=== PATIENT | female | born 1995 | race Caucasian/White ===

== ENCOUNTER 2016-10-24 17:12 | Observation (INO) | payer MEDICAID ==
[2016-10-24] MEDS ORDERED: MORPHINE SULFATE 10 MG/ML INJ IV ONE ×2 (18:39→23:28)
[2016-10-24] MEDS ORDERED: NORMAL SALINE 1000 ML 1,000 ML IV PRN (18:39)
--- NOTE | 2016-10-24 18:42 | ER Document Report ---
ED Medical Screen (RME) - General Chief Complaint: Lower Abdominal Pain Stated Complaint: LOWER ABDOMINAL PAIN Time Seen by Provider: 10/24/16 18:38 Notes: Patient complains of 3-4 days of severe right lower quadrant abdominal pain. She says the pain lasts 10-15 minutes at a time. No problems with bowel movements. No trouble with vomiting. No problems with urination. She has been able to eat normally. She states that she has been using Tylenol for the pain but this does not help. She states currently the pain is unbearable. This is her first . She denies any vaginal bleeding or discharge. She states she had an ultrasound at 5 weeks and this showed a normal developing fetus with good heart rate. Patient asked for pain medication and states she needs something stronger than Tylenol. I explained the risks of giving the patient something stronger such as morphine. Patient states she understood but would like to proceed with the morphine. TRAVEL OUTSIDE OF THE [place] IN LAST 30 DAYS: No - Related Data Allergies/Adverse Reactions: aspirin Allergy (Verified 10/24/16 18:24) rash nitrofurantoin [From Macrobid] Allergy (Verified 10/24/16 18:24) rash Past Medical History - Social History Chew tobacco use (# tins/day): No Frequency of alcohol use: None Drug Abuse: None Pulmonary Medical History: Reports: Hx Asthma Renal/ Medical History: Denies: Hx Peritoneal Dialysis Past Surgical History: Reports: Hx Oral Surgery Physical Exam - Vital signs Vitals: Temp Pulse Resp BP Pulse Ox 98.4 F 79 13 118/69 96 10/24/16 17:26 10/24/16 17:26 10/24/16 17:26 10/24/16 17:26 10/24/16 17:26 Course - Vital Signs Vital signs: Temp Pulse Resp BP Pulse Ox 98.4 F 79 13 118/69 96 10/24/16 17:26 10/24/16 17:26 10/24/16 17:26 10/24/16 17:26 10/24/16 17:26
[2016-10-24 19:16] LABS: ABSOLUTE EOSINOPHILS # (AUTO) 0.1 10^3/uL (0.0-0.6); ABSOLUTE LYMPHOCYTES (AUTO) 2.3 10^3/uL (0.5-4.7); ABSOLUTE MONOCYTES (AUTO) 0.8 10^3/uL (0.1-1.4); ABSOLUTE NEUT (AUTO) 9.3 10^3/uL (1.7-8.2); BASOPHILS % (AUTO) 0.4 % (0-2); HEMATOCRIT 36.9 % (36.0-47.0); HEMOGLOBIN 12.7 g/dL (12.0-15.5); HGB HCT DIFFERENCE 1.2; LYMPHOCYTES % (AUTO) 18.7 % (13-45); MEAN CORPUSCULAR HEMOGLOBIN 30.1 pg (27.0-33.4); MEAN CORPUSCULAR HGB CONC 34.4 g/dL (32.0-36.0); MEAN CORPUSCULAR VOLUME 88 fl (80-97); MONOCYTES % (AUTO) 6.1 % (3-13); RED BLOOD COUNT 4.21 10^6/uL (3.72-5.28); RED CELL DISTRIBUTION WIDTH 14.1 % (11.5-14.0); SEGMENTED NEUTROPHILS % (AUTO) 73.8 % (42-78); WHITE BLOOD COUNT 12.5 10^3/uL (4.0-10.5)
[2016-10-24 20:01] LABS: APPEARANCE,URINE CLEAR; BILIRUBIN,URINE NEGATIVE (NEGATIVE); GLUCOSE, URINE NEGATIVE (NEGATIVE); KETONES,URINE NEGATIVE (NEGATIVE); LEUKOCYTE ESTERASE,URINE NEGATIVE (NEGATIVE); NITRITE,URINE NEGATIVE (NEGATIVE); PROTEIN,URINE NEGATIVE (NEGATIVE); URINE SPECIFIC GRAVITY 1.003; UROBILINOGEN,URINE NEGATIVE mg/dL (<2.0)
[2016-10-24 20:07] LABS: ALANINE AMINOTRANSFERASE 27 U/L (9-52); ALBUMIN 3.9 g/dL (3.5-5.0); ALKALINE PHOSPHATASE 57 U/L (38-126); ANION GAP 8 (5-19); ASPARTATE AMINO TRANSFERASE 19 U/L (14-36); BILIRUBIN,DIRECT 0.3 mg/dL (0.0-0.4); BILIRUBIN,TOTAL 0.4 mg/dL (0.2-1.3); BLOOD UREA NITROGEN 6 mg/dL (7-20); CALCIUM 9.7 mg/dL (8.4-10.2); CARBON DIOXIDE 22 mmol/L (22-30); CHLORIDE 104 mmol/L (98-107); CREATININE RESULT 0.48 mg/dL (0.52-1.25); GLUCOSE 77 mg/dL (75-110); SODIUM 134.2 mmol/L (137-145); TOTAL PROTEIN 6.8 g/dL (6.3-8.2)
[2016-10-24] MEDS ORDERED: ONDANSETRON HCL INJ/PF 4 MG/2 ML SDV IV ONE (23:28)
--- NOTE | 2016-10-24 23:29 | ER Document Report ---
ED GI/ - General Chief Complaint: Lower Abdominal Pain Stated Complaint: LOWER ABDOMINAL PAIN Time Seen by Provider: 10/24/16 18:38 Notes: Patient is a 21-year-old female, at 15 weeks gestation by first trimester ultrasound, the comes emergency department for chief complaint of 3 days of worsening right lower quadrant pain. She states pain has become unbearable now. She denies dysuria, vaginal discharge or bleeding. She denies flank pain or vomiting. She denies any surgery or medical history. TRAVEL OUTSIDE OF THE [place] IN LAST 30 DAYS: No - Related Data Allergies/Adverse Reactions: aspirin Allergy (Verified 10/24/16 18:24) rash nitrofurantoin [From Macrobid] Allergy (Verified 10/24/16 18:24) rash Past Medical History - General Information source: Patient - Social History Smoking Status: Never Smoker Chew tobacco use (# tins/day): No Frequency of alcohol use: None Drug Abuse: None Lives with: Spouse/Significant other Family History: Reviewed & Not Pertinent Patient has suicidal ideation: No Patient has homicidal ideation: No Pulmonary Medical History: Reports: Hx Asthma Renal/ Medical History: Denies: Hx Peritoneal Dialysis Past Surgical History: Reports: Hx Oral Surgery Review of Systems - Review of Systems Constitutional: No symptoms reported EENT: No symptoms reported Cardiovascular: No symptoms reported Respiratory: No symptoms reported Gastrointestinal: See HPI Genitourinary: No symptoms reported Female Genitourinary: See HPI Musculoskeletal: No symptoms reported Skin: No symptoms reported Hematologic/Lymphatic: No symptoms reported Neurological/Psychological: No symptoms reported Physical Exam - Vital signs Vitals: Temp Pulse Resp BP Pulse Ox 98.4 F 79 13 118/69 96 10/24/16 17:26 10/24/16 17:26 10/24/16 17:26 10/24/16 17:26 10/24/16 17:26 Interpretation: Normal - General General appearance: Alert, Other - Patient alert but she appears mildly uncomfortable - HEENT Head: Normocephalic, Atraumatic Eyes: Normal Conjunctiva: Normal Extraocular movements intact: Yes Eyelashes: Normal Pupils: PERRL Nasal: Normal Mouth/Lips: Normal Mucous membranes: Dry Pharynx: Normal Neck: Normal - Respiratory Respiratory status: No respiratory distress Chest status: Nontender Breath sounds: Normal Chest palpation: Normal - Cardiovascular Rhythm: Regular Heart sounds: Normal auscultation Murmur: No - Abdominal Inspection: Normal Distension: No distension Bowel sounds: Normal Tenderness: Tender - Patient with specific McBurney's point tenderness and guarding, remaining abdomen is soft and benign, McBurney's point, Guarding Organomegaly: No organomegaly - Genitourinary External exam: Normal Speculum exam: Normal, Cervix closed. No: Cervix open, Vaginal discharge Vaginal bleeding: None Bimanuel exam: No: Cervical motion tender Notes: Exam performed with Zabrina REYES at bedside. - Back Back: Normal, Nontender - Extremities General upper extremity: Normal inspection, Nontender, Normal color, Normal ROM , Normal temperature General lower extremity: Normal inspection, Nontender, Normal color, Normal ROM , Normal temperature, Normal weight bearing. No: Steve's sign - Neurological Neuro grossly intact: Yes Cognition: Normal Orientation: AAOx4 [place]ah Coma Scale Eye Opening: Spontaneous [place] Coma Scale Verbal: Oriented [place]ah Coma Scale Motor: Obeys Commands Myah Coma Scale Total: 15 Speech: Normal Motor strength normal: LUE, RUE, LLE, RLE Sensory: Normal - Psychological Associated symptoms: Normal affect, Normal mood - Skin Skin Temperature: Warm Skin Moisture: Dry Skin Color: Normal Course - Re-evaluation Re-evalutation: Patient has specific tenderness at McBurney's point on examination. Remaining abdomen is unremarkable. No CVA tenderness. CBC shows leukocytosis at 12.5 with elevation of neutrophils but no bandemia. Urinalysis unremarkable. Chemistry unremarkable. Ultrasound of the uterus is normal, ultrasound of the right lower abdomen unfortunately does not visualize the appendix. Pelvic exam performed, completely unremarkable with no evidence of cervical motion tenderness, no erythema or discharge, completely unremarkable pelvic examination. Concern for acute appendicitis. Discussed with Dr. Seo. Discussed with surgeon on-call, Dr. Hurst he states he will come evaluate the patient. Dr. Hurst is taking the patient to the OR, he asks patient be given additional IV fluids, be given Unasyn 3 g IV now. - Vital Signs Vital signs: Temp Pulse Resp BP Pulse Ox 98.3 F 85 16 97/64 L 98 10/25/16 03:01 10/25/16 03:01 10/25/16 03:01 10/25/16 03:01 10/25/16 03:01 - Laboratory Result Diagrams: 10/24/16 18:54 10/24/16 18:54 Laboratory results interpreted by me: 10/24/16 10/24/16 18:54 18:54 WBC 12.5 H RDW 14.1 H Absolute Neutrophils 9.3 H Sodium 134.2 L BUN 6 L Creatinine 0.48 L Discharge - Discharge Clinical Impression: Right lower quadrant pain, Leukocytosis Condition: Stable Disposition: ADMITTED OBSERVATION Admitting Provider: Surgicalist - Dr. Hurst Unit Admitted: OR
--- NOTE | 2016-10-25 01:10 | RADIOLOGY REPORT (SQ) ---
EXAM DESCRIPTION: U/S OB 14+ TRNABD 1GES W/O DOP COMPLETED DATE/TIME: 10/25/2016 12:29 am REASON FOR STUDY: abdominal pain COMPARISON: None. TECHNIQUE: Static and Dynamic grayscale imaging performed of gravid uterus using transabdominal appr oach. Additional selected color Doppler and spectral images recorded. All stored on PACS. LIMITATIONS: None. FINDINGS: EGA: 15 weeks 6 days BARBY: 04/11/2017 EFW: Not available. PERCENTILE: Not applicable. Fetus less than or equal to 20 weeks gestation. FELIX: 7.6 cm. PLACENTA: Anterior. PRESENTATION: Breech. ANATOMY: HEART RATE: 137 beats per minute. FOUR CHAMBER HEART: Visualized. THREE VESSEL CORD: Yes. CORD INSERTION: Visualized. KIDNEYS AND BLADDER: Not visualized. STOMACH: Not visualized. SPINE: Normal as visualized. BRAIN AND LATERAL VENTRICLES: Visualized. Appear normal. OTHER: No other significant finding. MATERNAL ADNEXA: Maternal ovaries not visualized. CERVICAL LENGTH: 3.3 cm Closed. OTHER: No other significant finding. IMPRESSION: LIVING INTRAUTERINE . ESTIMATED GESTATIONAL AGE 15 weeks 6 days Limited anatomic survey with no visualized anomalies ; kidneys, bladder, and stomach not well v isualized. Trimester of : Second trimester - 13 weeks 1 day to 27 weeks 6 days. TECHNICAL DOCUMENTATION: JOB ID: [id number] [employer]- All Rights Reserved
--- NOTE | 2016-10-25 01:12 | RADIOLOGY REPORT (SQ) ---
EXAM DESCRIPTION: U/S ABDOMEN LIMITED W/O DOP COMPLETED DATE/TIME: 10/25/2016 12:29 am REASON FOR STUDY: RLQ pain, eval appendix COMPARISON: Ob ultrasound, concurrent. TECHNIQUE: Static and real time alamo scale imaging performed of the right lower quadrant with additi onal compression maneuvers. LIMITATIONS: None. FINDINGS: APPENDIX: Not visualized. BOWEL: No significant abnormality identified. OTHER: No other significant finding. IMPRESSION: No evidence of appendicitis. TECHNICAL DOCUMENTATION: JOB ID: [id number] [employer]- All Rights Reserved
[2016-10-25] MEDS ORDERED: AMPICILLIN SOD/SULBACTAM 3 GM VIAL IV ONE (02:37)
[2016-10-25] MEDS ORDERED: NORMAL SALINE 1000 ML 1,000 ML IV ONE (02:38)
--- NOTE | 2016-10-25 02:54 | PDOC H&P ---
History of Present Illness Patient complains of: Abdominal pain History of Present Illness: GIANCARLO DUARTE is a 21 year old female Who is 15 weeks presenting with 3 day history of right lower quadrant abdominal pain. Patient noted that she had gradual onset of right lower quadrant abdominal pain 3 days ago. She has had some generalized fatigue and worsening malaise along with worsening of her right lower quadrant abdominal pain. She denies any fever. She denies any diarrhea. She denies any cough nor sore throat. She denies any dysuria. She denies any vaginal bleeding. She denies any blood per rectum. She denies any prior history of this sort of abdominal pain. Her has been going well with no significant problems. She is very healthy other than history of childhood asthma. She does have a history of anemia. Past Medical History Pulmonary Medical History: Reports: Asthma Hematology: Reports: Anemia Social History Smoking Status: Never Smoker Frequency of Alcohol Use: Social - But has quit since her . Family History Parental Family History Reviewed: No Children Family History Reviewed: No Sibling(s) Family History Reviewed.: No Medication/Allergy Allergies/Adverse Reactions: aspirin Allergy (Verified 10/24/16 18:24) rash nitrofurantoin [From Macrobid] Allergy (Verified 10/24/16 18:24) rash Physical Exam Vital Signs: Temp Pulse Resp BP Pulse Ox 98.4 F 79 13 118/69 96 10/24/16 17:26 10/24/16 17:26 10/24/16 17:26 10/24/16 17:26 10/24/16 17:26 Intake & Output 10/23/16 10/24/16 10/25/16 06:59 06:59 06:59 Weight 61.5 kg General appearance: PRESENT: no acute distress, cooperative Eye exam: PRESENT: conjunctiva pink Mouth exam: PRESENT: moist, neck supple Respiratory exam: PRESENT: clear to auscultation torrey Cardiovascular exam: PRESENT: RRR GI/Abdominal exam: PRESENT: other - Soft, gravid, focal severe tenderness to palpation in the right lower quadrant with percussion tenderness. No guarding however. Extremities exam: PRESENT: other - No swelling Neurological exam: PRESENT: alert, awake Psychiatric exam: PRESENT: appropriate affect Skin exam: PRESENT: warm Results Laboratory Results: 10/24/16 18:54 10/24/16 18:54 0810/24/16 10/24/16 17:20 18:54 18:54 WBC 12.5 H RBC 4.21 Hgb 12.7 Hct 36.9 MCV 88 MCH 30.1 MCHC 34.4 RDW 14.1 H Plt Count 204 Seg Neutrophils % 73.8 Lymphocytes % 18.7 Monocytes % 6.1 Eosinophils % 1.0 Basophils % 0.4 Absolute Neutrophils 9.3 H Absolute Lymphocytes 2.3 Absolute Monocytes 0.8 Absolute Eosinophils 0.1 Absolute Basophils 0.0 Sodium 134.2 L Potassium 4.0 Chloride 104 Carbon Dioxide 22 Anion Gap 8 BUN 6 L Creatinine 0.48 L Est GFR ( Amer) > 60 Est GFR (Non-Af Amer) > 60 Glucose 77 Calcium 9.7 Total Bilirubin 0.4 AST 19 ALT 27 Alkaline Phosphatase 57 Total Protein 6.8 Albumin 3.9 Urine Color COLORLESS Urine Appearance CLEAR Urine pH 7.0 Ur Specific [place] 1.003 Urine Protein NEGATIVE Urine Glucose (UA) NEGATIVE Urine Ketones NEGATIVE Urine Blood NEGATIVE Urine Nitrite NEGATIVE Ur Leukocyte Esterase NEGATIVE Urine WBC (Auto) 0 Impressions: Abdomen Ultrasound 10/24/16 23:25 IMPRESSION: No evidence of appendicitis. Obstetrics Ultrasound 10/24/16 23:25 IMPRESSION: LIVING INTRAUTERINE . ESTIMATED GESTATIONAL AGE 15 weeks 6 days Limited anatomic survey with no visualized anomalies ; kidneys, bladder, and stomach not well visualized. Trimester of : Second trimester - 13 weeks 1 day to 27 weeks 6 days. Assessment & Plan - Diagnosis (1) Appendicitis Qualifiers: Appendicitis type: acute appendicitis Is this a current diagnosis for this admission?: Yes Plan: 15 week patient with persistent right lower quadrant abdominal pain with generalized malaise with leukocytosis and focal severe tenderness in the right lower quadrant, highly suspicious for acute appendicitis. Appendix NOT visualized by ultrasonography. Rather than risk perforation, will proceed with laparoscopic appendectomy. I have discussed with her the risk and benefits of surgery including risk of mistaken diagnosis, harm to the fetus including , labor, infection, bleeding, poor healing at appendectomy site (stump leak) adjacent structure injury, and possibility of conversion to an open procedure. Patient fully understands risk and benefits of the surgery and agrees to proceed. She understands that even if the appendix appears normal I will most likely remove the appendix. I have asked the on-call SHOWCASE TRIMMER to be on standby just in case I encountered an ovarian abnormality. The on-call doctor has agreed to check heart tones post operatively as well.
[2016-10-25] MEDS ORDERED: BUPIVACAINE HCL 0.25 % INJ/PF (2.5 MG/1 ML) 30 ML VIAL ONE (03:08)
[2016-10-25 03:13] LABS: CHLAM PCR NOT DETECTED (NOT DETECT)
[2016-10-25] MEDS ORDERED: FENTANYL CITRATE INJ/PF 100 MCG/2 ML AMPUL ONE ×2 (03:22→05:15)
[2016-10-25] MEDS ORDERED: DEXAMETHASONE SOD PHOSPHATE INJ 4 MG/1 ML VIAL ONE (03:23)
[2016-10-25] MEDS ORDERED: MIDAZOLAM 2 MG/2 ML INJ ONE (03:23)
[2016-10-25] MEDS ORDERED: ONDANSETRON HCL INJ/PF 4 MG/2 ML SDV ONE (03:23)
[2016-10-25] MEDS ORDERED: PROPOFOL INJ 200 MG/20 ML VIAL IV ONE (03:23)
[2016-10-25] MEDS ORDERED: MORPHINE SULFATE 10 MG/ML INJ ONE (03:23)
[2016-10-25] MEDS ORDERED: BUPIVACAINE HCL 0.25 % INJ/PF (2.5 MG/1 ML) 30 ML VIAL INJ ONE ×2 (04:27)
[2016-10-25] MEDS ORDERED: DEXTROSE 50%-WATER 25 GM/50 ML DISP.SYRIN IV PRN ×2 (05:12)
[2016-10-25] MEDS ORDERED: GLUCAGON,HUMAN RECOMB 1 MG INJ SUBCUT PRN (05:12)
[2016-10-25] MEDS ORDERED: DEXTROSE 40% GEL 15 GM TUBE PO PRN ×2 (05:12)
[2016-10-25] MEDS ORDERED: METOCLOPRAMIDE HCL INJ/PF 10 MG/2 ML SDV ONE (05:14)
[2016-10-25] MEDS ORDERED: NORMAL SALINE 1000 ML 1,000 ML IV PRN (05:16)
[2016-10-25] MEDS ORDERED: FENTANYL CITRATE INJ/PF 100 MCG/2 ML AMPUL IV PRN ×2 (05:58→06:15)
--- NOTE | 2016-10-25 06:12 | CONSULTATION REPORT E ---
Consultation Report NAME: GIANCARLO DUARTE : 1995 AGE: 21Y DATE: 10/25/2016 ED18 A TO: ADELINA MORSE M.D. FROM: SHELLI AGUILA Requesting Physician REFERRING PHYSICIAN: Rober Hurst MD INDICATION FOR CONSULT: Postop intrauterine from appendectomy. HOSPITAL COURSE: The patient is a 21-year-old, G1, P0, now at 15 weeks estimated gestational age who presented to the emergency room last night with right lower quadrant pain. She was taken to the operating room by Rober Hurst MD and had appendectomy performed. Her operative course was reportedly unremarkable. In PACU, her heart tones were in the 120s. At this time, she denies any vaginal bleeding or contraction-like pain. PAST MEDICAL HISTORY: Unremarkable. ALLERGIES: ASPIRIN which leads to rash; however, she is able to tolerate other NSAIDs. PHYSICAL EXAMINATION: VITAL SIGNS: Currently, heart rate is in the 80s, blood pressure was 89 over 60s. She is afebrile. GENERAL: The appears comfortable and in no acute distress. ABDOMEN: Soft. Laparoscopic incisions are clean and dry. IMPRESSION: Intrauterine at 15 weeks status post laparoscopic appendectomy. PLAN: We will give Indocin prophylactically 50 mg per rectum now and then 25 mg p.o. q.i.d. for a total of 2 days. The patient will be given Prevacid while on the Indocin. We will check heart tones twice daily and watch for vaginal bleeding or other obstetric problems. The other part of her postoperative course will be managed by Dr. Hurst. Thank you for this consultation. DICTATING PHYSICIAN: ADELINA MORSE M.D. [id number] PHY#: [id number] ID: [id number] JOB#: [id number] ACCT: [id number] cc:ADELINA MORSE M.D. >
[2016-10-25] MEDS ORDERED: METOCLOPRAMIDE HCL INJ/PF 10 MG/2 ML SDV IV ONE (06:15)
[2016-10-25] MEDS ORDERED: INDOMETHACIN 50 MG CAPSULE PO ONE ×2 (06:45→08:30)
[2016-10-25] MEDS ORDERED: LANSOPRAZOLE 30 MG TAB.RAP.DR PO ONE (06:45)
[2016-10-25] MEDS: MORPHINE SULFATE 10 MG/ML INJ IV PRN ×2 (08:08→22:54)
[2016-10-25] MEDS ORDERED: SUCCINYLCHOLINE CHLORIDE INJ 200 MG/10 ML VIAL ONE (08:53)
[2016-10-25] MEDS ORDERED: ROCURONIUM BROMIDE INJ 50 MG/5 ML VIAL IV ONE (08:53)
[2016-10-25] MEDS ORDERED: GLYCOPYRROLATE INJ 0.4 MG/2 ML VIAL ONE (08:53)
[2016-10-25] MEDS: INDOMETHACIN 25 MG CAPSULE PO SCH ×3 (09:48→20:48)
[2016-10-25] MEDS ORDERED: INDOMETHACIN 25 MG CAPSULE PO SCH (10:00)
--- NOTE | 2016-10-25 11:26 | PDOC PROGRESS REPORT ---
Subjective Progress Note for:: 10/25/16 Subjective:: feels better. hungry Physical Exam Vital Signs: Temp Pulse Resp BP Pulse Ox 98.3 F 90 16 101/60 100 10/25/16 09:48 10/25/16 09:48 10/25/16 09:48 10/25/16 09:48 10/25/16 09:48 Intake & Output 10/24/16 10/25/16 10/26/16 06:59 06:59 06:59 Intake Total 500 Output Total 0 Balance 500 General appearance: PRESENT: no acute distress, cooperative Respiratory exam: PRESENT: clear to auscultation torrey Cardiovascular exam: PRESENT: RRR GI/Abdominal exam: PRESENT: other - soft, nd, rlq tenderness resolved. Extremities exam: PRESENT: other - no swelling. Results Impressions: Abdomen Ultrasound 10/24/16 23:25 IMPRESSION: No evidence of appendicitis. Obstetrics Ultrasound 10/24/16 23:25 IMPRESSION: LIVING INTRAUTERINE . ESTIMATED GESTATIONAL AGE 15 weeks 6 days Limited anatomic survey with no visualized anomalies ; kidneys, bladder, and stomach not well visualized. Trimester of : Second trimester - 13 weeks 1 day to 27 weeks 6 days. Assessment & Plan - Diagnosis (1) Appendicitis Qualifiers: Appendicitis type: acute appendicitis Is this a current diagnosis for this admission?: Yes Plan: s/p lap appy and exploratory laparoscopy. pt doing well. no evidence of labor. fht's 125 post op. although diagnosis of appendicitis is uncertain, her preop pain has resolved. explained to pt intraop findings including colon dilation, likely due to uterine compression of sigmoid. 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 will start diet. provided pt continues to do well, plan discharge tomorrow. greatly appreciate Dr Meyer's input.
[2016-10-26] MEDS: INDOMETHACIN 25 MG CAPSULE PO SCH ×2 (02:14→08:34)
[2016-10-26] MEDS: MORPHINE SULFATE 10 MG/ML INJ IV PRN (05:50)
[2016-10-26 06:46] LABS: HEMATOCRIT 29.4 % (36.0-47.0); HGB HCT DIFFERENCE 1.8; MEAN CORPUSCULAR HGB CONC 35.2 g/dL (32.0-36.0); MEAN CORPUSCULAR VOLUME 88 fl (80-97); RED BLOOD COUNT 3.34 10^6/uL (3.72-5.28); WHITE BLOOD COUNT 9.4 10^3/uL (4.0-10.5)
[2016-10-26 06:50] LABS: ANION GAP 7 (5-19); BLOOD UREA NITROGEN 4 mg/dL (7-20); CARBON DIOXIDE 22 mmol/L (22-30); CHLORIDE 108 mmol/L (98-107); CREATININE RESULT 0.41 mg/dL (0.52-1.25); GLUCOSE 91 mg/dL (75-110); POTASSIUM 3.5 mmol/L (3.6-5.0); SODIUM 136.5 mmol/L (137-145)
[2016-10-26 06:54] LABS: HEMOGLOBIN 10.4 g/dL (12.0-15.5)
[2016-10-26] MEDS ORDERED: LANSOPRAZOLE 30 MG TAB.RAP.DR PO SCH (10:00)
[2016-10-26 11:29] VITALS: BP 97/64
--- NOTE | 2016-10-26 22:27 | DISCHARGE SUMMARY E ---
Discharge Summary NAME: GIANCARLO DUARTE : 1995 AGE: 21Y ADMITTED: 10/25/2016 DISCHARGED: 10/26/2016 FINAL DIAGNOSIS: Status post laparoscopic appendectomy for acute appendicitis. HOSPITAL COURSE: This 21-year-old female presented to the emergency room on 10/25/2016 with right lower quadrant pain. The patient is 15 weeks and was seen by Dr. Hurst in the emergency room. Because of the 15-week , the patient was taken immediately to the operating room where she underwent an uneventful laparoscopic appendectomy by Dr. Cyril Hurst. The patient's postop course was uneventful. She was started on liquid diet, then advanced immediately to a regular diet on the day of surgery. On patient's postop day #1, she was afebrile and vital signs were stable. The incisions were clean, dry and intact and she was having minimal pain. The patient is now discharged home on Indocin 25 mg p.o. q.i.d. and is to return to the office for followup with Dr. Hurst or any other surgeon in the [facility] in 7-10 days. DICTATING PHYSICIAN: MICHELLE MÉNDEZ M.D. [id number] PHY#: [id number] ID: [id number] JOB#: [id number] ACCT: [id number] cc:JERZY AC KYRON M.D. >
--- NOTE | 2016-11-19 10:09 | Operative Report ---
Operative Report DATE OF SURGERY: 10/25/16 PREOPERATIVE DIAGNOSIS: Appendicitis POSTOPERATIVE DIAGNOSIS: Right lower quadrant abdominal pain OPERATION: Laparoscopic appendectomy, exploratory laparoscopy. SURGEON: AKBAR LANG ANESTHESIA: GA TISSUE REMOVED OR ALTERED: Appendix COMPLICATIONS: None ESTIMATED BLOOD LOSS: Minimal INTRAOPERATIVE FINDINGS: Long serpentine slightly distended appendix but no erythema. Cecum free of peritoneal attachment laying medially. Moderately distended colon throughout. Normal-appearing small bowel. Normal-appearing liver. Normal-appearing gallbladder. Normal-appearing bilateral ovaries. Gravid uterus. No free fluid no pus no blood in the peritoneal cavity. No right inguinal hernia. PROCEDURE: Informed consent was obtained. Patient was brought to the operating room and placed on the operating room table in the supine position. After satisfactory induction of general anesthesia, patient's abdomen was prepped and draped in usual sterile fashion. A supraumbilical midline incision was made and dissection carried down through the fascia and the peritoneal cavity entered without difficulty. Youngblood trocar was inserted pneumoperitoneum produced with good patient toleration. 5 mm trocar was placed in right lateral abdomen lateral to the rectus above the level of the umbilicus. Another 5 mm trocar was placed at the midline several centimeters below the Youngblood trocar site. Great care was taken to avoid injury or manipulation to the gravid uterus during the entire case. The patient was placed in Trendelenburg position with the right side up. The cecum was devoid of peritoneal attachment and it was laying free medially but otherwise it appeared normal with no inflammatory changes. The entire colon appeared distended but otherwise normal. The sigmoid colon appeared to be compressed by the uterus but otherwise the portion that was visualized appeared normal. The small bowel did not appear distended. The appendix was long and serpentine and appears slightly distended but no erythema was noted. There was no blood nor fluid in the peritoneal cavity. Both of the ovaries were visualized and they appeared normal. The small bowel was run from the ileocecal junction up proximally and no abnormalities were seen. The liver and gallbladder appeared normal. The anterior abdominal wall appeared normal with no hernias, although the left inguinal region could not be visualized despite placing her with left side up transiently. A plane was created between the appendix and the mesoappendix. The appendix was taken flush with the cecum using a Endo CRISTOFER stapling device. The mesoappendix was taken using a LigaSure device. The stump closure appeared secure and hemostasis appeared excellent. The appendix was placed in an Endobag and removed through the Youngblood trocar site fascial defect. No irrigation was used during the case. All trochars were removed under the direct vision of the laparoscope to ensure hemostasis. The Youngblood trocar site fascial defect was closed with interrupted Vicryl sutures. All skin incisions were closed with subcuticular interrupted Monocryl sutures. Marcaine was injected at the port sites. Patient tolerated procedure well with no apparent complications and was taken to the recovery area in stable condition.
== END 2016-10-26 12:24 | disposition home or self-care (01) ==
LOC: ER 17:12 → UNDOADMOB 10-25 02:49 → EH 10-25 02:49 → 2S 10-25 05:12 → EH 10-25 06:33 → 2S 10-25 06:33
PROVIDERS: ATTEND Surgery
PROC: 0DTJ4ZZ Resection of Appendix, Percutaneous Endoscopic Approach (ICD-10-PCS; principal; 2016-10-25 03:30)
DX: O99.612 Diseases of the digestive system complicating pregnancy, second trimester (principal); R10.31 Right lower quadrant pain; K38.1 Appendicular concretions; K59.39 Other megacolon; Q43.8 Other specified congenital malformations of intestine; Z3A.15 15 weeks gestation of pregnancy; Z88.6 Allergy status to analgesic agent
CPT/HCPCS: 44970; 96376; 99285; 96361; 96374; 96375; 36415 ×2; 87210; 85025; 85027; 80048; 80053; 81001; 87491; 87591; 88304 ×2; 76805; 76705; G0378 ×3; J3490 ×7; J1100; J3010; J0295; J2765; J2270 ×3; J0330; J2405 ×2; S0020; J7030 ×2; J2704; 840; J2250